=== PATIENT | male | born 1985 | race Caucasian/White ===

== ENCOUNTER 2017-11-09 19:19 | Emergency (ER) | payer OTHER ==
[~2017-11-09] VITALS: Ht 175.3 cm; Wt 83.9 kg
--- NOTE | 2017-11-09 20:18 | ED GENERAL ADULT ---
History of Present Illness General Chief Complaint: Skin Rash/ Abcess Stated Complaint: ABCESS ON THE FORHEAD Source: patient Exam Limitations: no limitations Vital Signs & Intake/Output Vital Signs & Intake/Output Vital Signs Date Time Temp Pulse Resp B/P B/P Pulse O2 O2 Flow FiO2 Mean Ox Delivery Rate 11/09 2158 98.2 88 20 122/87 99 Room Air 11/09 1928 98.2 82 18 111/70 95 Room Air ED Intake and Output 11/10 0000 11/09 1200 Intake Total 0 Output Total Balance 0 Intake, Oral 0 Patient 185 lb Weight Weight Reported by Patient Measurement Method Allergies Coded Allergies: Penicillins (HIVES 11/09/17) Reconcile Medications Doxycycline Hyclate (Vibramycin) 100 MG CAPSULE 1 CAP PO BID ABSCESS Gabapentin 300 MG CAPSULE 1 CAP PO BID PRN NERVE PAIN (Reported) Ibuprofen 200 MG CAPSULE 3-4 TAB PO DAILY PAIN/INFLAMMATION (Reported) Multiple Vitamin (Multivitamins) 1 EACH TABLET 1 TAB PO DAILY SUPPLEMENT ( Reported) Triage Note: PT TO ED C/O ABCESS TO LEFT FOREHEAD. NOTICED A WEEK AGO, WORSE THE LAST 24 HRS. RED AND RAISED. "I DRAINED A LITTLE BIT , BUT IT'S GETTING BIGGER" "I GET CYSTS" Triage Nurses Notes Reviewed? yes Onset: Abrupt Duration: week(s): Timing: recent history HPI: 11/09/17 32-year-old male presents to the emergency department for left forehead abscess. The patient states he's had a pimple on his forehead that he's pop several times and it keeps recurring and now it is enlarged and is painful. He denies any visual disturbances, fever, or other complaints. Past History Travel History Traveled to [place] past 21 day No Medical History Any Pertinent Medical History? see below for history Cardiovascular: hypertension Gastrointestinal: GERD Musculoskeletal: chronic back pain Psychiatric: anxiety Surgical History Surgical History: non-contributory Psychosocial History What is your primary language Malay Tobacco Use: Current Daily Use Daily Tobacco Use Amount/Type: => 5 Cigarettes daily ETOH Use: occasional use Illicit Drug Use: denies illicit drug use Family History Hx Contributory? No Review of Systems Review of Systems Constitutional: Denies: fever. EENTM: Denies: visual changes. Respiratory: Denies: short of breath. Cardiovascular: Denies: chest pain. GI: Denies: abdominal pain. Genitourinary: Reports: no symptoms. Musculoskeletal: Reports: no symptoms. Skin: Reports: see HPI. Neurological/Psychological: Reports: no symptoms. Hematologic/Endocrine: Reports: see HPI. Immunologic/Allergic: Reports: no symptoms. Physical Exam Physical Exam General Appearance: well developed/nourished, alert, awake, anxious, mild distress Head: abscess left forehead Eyes: Bilateral: normal appearance, PERRL, EOMI. Ears, Nose, Throat: normal pharynx, normal ENT inspection, hearing grossly normal Neck: normal inspection, supple, full range of motion Respiratory: normal breath sounds, chest non-tender, no respiratory distress Cardiovascular: regular rate/rhythm Peripheral Pulses: 4+ radial (R), 4+ radial (L) Back: normal range of motion Extremities: normal inspection, normal range of motion Neurologic/Psych: no motor/sensory deficits, awake, alert, oriented x 3 Skin: intact, abscess left forehead Core Measures ACS in differential dx? No CVA/TIA Diagnosis: No Sepsis Present: No Sepsis Focused Exam Completed? No Progress Differential Diagnoses I considered the following diagnoses in my evaluation of the patient: [Abscess, cellulitis, insect bite, foreign body] Plan of Care: Orders Procedure Date/time Status HEAD & NECK CULTURE 11/09 2142 Active Microbiology 11/09 2199 HEAD/NECK: Head/Neck Culture - RECD 11/09 2199 HEAD/NECK: Gram Stain - RECD Initial ED EKG: none Departure Departure Disposition: HOME OR SELF CARE Condition: Stable Clinical Impression Primary Impression: Facial abscess Referrals: Matt JOHNS,Ghanshyam Webster (PCP/Family) Departure Forms: Customer Survey General Discharge Information Prescriptions: Current Visit Scripts Doxycycline Hyclate (Vibramycin) 1 CAP PO BID #20 CAP Comments Procedure I&D of facial abscess Under sterile technique and local anesthesia with 5 mL of 1% lidocaine without epinephrine and a size 11 scalpel blade the abscess was incised and drained. We 'll of lidocaine was raised, a horizontal stab incision was made in the abscess, the cavity was opened. Caseous material was extruded, consistent with a sebaceous cyst. The cyst capsule was removed. The wound was irrigated. It was packed with gauze. Bacitracin and a sterile dressing was applied. Culture was sent. Patient was placed on Vibramycin. Critical Care Note Critical Care Note Critical Care Time: non-applicable
[2017-11-09] MEDS ORDERED: IBUPROFEN200 M3 PO (20:48)
[2017-11-09] MEDS ORDERED: GABAPENTIN300 M2 PO (20:48)
[2017-11-09] MEDS ORDERED: MULTIVITAMINS1 EAC9 PO (20:49)
[2017-11-09] MEDS ORDERED: VIBRAMYCIN100 MG PO (21:48)
[2017-11-09 21:59] VITALS: BP 122/87
== END 2017-11-09 22:00 ==
LOC: ERH 19:19
DX: L02.01 Cutaneous abscess of face (principal)
CPT/HCPCS: 87070; J2001